=== PATIENT | female | born 1980 | race American Indian/Alaskan Native ===

== ENCOUNTER 2021-05-03 06:16 | Emergency (ER) | payer BC ==
--- NOTE | 2021-05-03 06:36 | Emergency Department Report ---
- General Chief Complaint: Upper Respiratory Infection Stated Complaint: OTHER Time Seen by Provider: 05/03/21 06:32 Source: patient Mode of arrival: Ambulatory Limitations: No Limitations - History of Present Illness Initial Comments: 40-year-old female, history of bronchitis, presents to ED with cough and wheezing since last night. Patient denies any fever, loss of smell or taste. Patient received her COVID-19 vaccine. Patient reports using albuterol nebulizer prior to arrival. MD Complaint: cough -: Last night Severity: mild Consistency: constant Improves With: other (Nebulizer) Worsens With: nothing Associated Symptoms: cough. denies: fever, chills, sore throat, nausea, vomiting, diarrhea Treatments Prior to Arrival: other (Albuterol nebulizer) - Related Data Previous Rx's Medication Instructions Recorded Last Taken Type Ibuprofen [Motrin] 800 mg PO Q8H PRN #21 tablet 12/29/14 Unknown Rx Mometasone Furoate [Nasonex] 1 spray NS DAILY #1 spray.pump 05/28/20 Unknown Rx guaiFENesin/CODEINE [Robitussin AC] 5 ml PO Q6H PRN #120 ml 05/28/20 Unknown Rx predniSONE [Deltasone] 50 mg PO QDAY #5 tab 05/28/20 Unknown Rx Albuterol Sulfate [Proventil Hfa] 2 puff IH Q4HR PRN #1 hfa.aer.ad 05/03/21 Unknown Rx Azithromycin 500 mg PO QDAY #3 tablet 05/03/21 Unknown Rx Benzonatate [Tessalon Perles] 100 mg PO Q8HR PRN #20 capsule 05/03/21 Unknown Rx predniSONE [Deltasone] 50 mg PO QDAY #5 tab 05/03/21 Unknown Rx Allergies Allergy/AdvReac Type Severity Reaction Status Date / Time No Known Allergies Allergy Unverified 12/29/14 00:23 ED Review of Systems ROS: Stated complaint: OTHER Other details as noted in HPI Comment: All other systems reviewed and negative Constitutional: denies: chills, fever ENT: other (Denies loss of smell or taste) Respiratory: cough, wheezing ED Past Medical Hx - Past Medical History Previous Medical History?: Yes Additional medical history: bronchitis - Surgical History Past Surgical History?: No - Social History Smoking Status: Never Smoker Substance Use Type: None - Medications Home Medications: Home Medications Medication Instructions Recorded Confirmed Last Taken Type Ibuprofen [Motrin] 800 mg PO Q8H PRN #21 tablet 12/29/14 Unknown Rx Mometasone Furoate [Nasonex] 1 spray NS DAILY #1 spray.pump 05/28/20 Unknown Rx guaiFENesin/CODEINE [Robitussin AC] 5 ml PO Q6H PRN #120 ml 05/28/20 Unknown Rx predniSONE [Deltasone] 50 mg PO QDAY #5 tab 05/28/20 Unknown Rx Albuterol Sulfate [Proventil Hfa] 2 puff IH Q4HR PRN #1 hfa.aer.ad 05/03/21 Unknown Rx Azithromycin 500 mg PO QDAY #3 tablet 05/03/21 Unknown Rx Benzonatate [Tessalon Perles] 100 mg PO Q8HR PRN #20 capsule 05/03/21 Unknown Rx predniSONE [Deltasone] 50 mg PO QDAY #5 tab 05/03/21 Unknown Rx ED Physical Exam - General Limitations: No Limitations General appearance: alert, in no apparent distress - Head Head exam: Present: atraumatic, normocephalic - Eye Eye exam: Present: normal appearance, EOMI - ENT ENT exam: Present: mucous membranes moist - Neck Neck exam: Present: normal inspection - Respiratory Respiratory exam: Present: normal lung sounds bilaterally. Absent: respiratory distress - Cardiovascular Cardiovascular Exam: Present: normal rhythm, tachycardia - GI/Abdominal GI/Abdominal exam: Absent: distended - Extremities Exam Extremities exam: Present: normal inspection - Neurological Exam Neurological exam: Present: alert, oriented X3 - Psychiatric Psychiatric exam: Present: normal affect, normal mood - Skin Skin exam: Present: warm, dry, intact, normal color ED Course Vital Signs 05/03/21 05/03/21 05/03/21 06:24 06:25 06:37 Temperature 98 F 98.3 F Pulse Rate 116 H 113 H Respiratory 16 19 Rate Blood Pressure 100/74 Blood Pressure 107/71 [Right] O2 Sat by Pulse 99 99 Oximetry 05/03/21 06:38 Temperature Pulse Rate Respiratory Rate Blood Pressure Blood Pressure [Right] O2 Sat by Pulse 100 Oximetry ED Medical Decision Making - Medical Decision Making Vital signs stable. Tachycardia likely secondary to albuterol treatment. Lungs are clear at this time. O2 sats are normal. Patient in no respiratory distress. Patient advised to obtain outpatient COVID-19 testing. - Differential Diagnosis Bronchitis, viral illness Critical care attestation.: If time is entered above; I have spent that time in minutes in the direct care of this critically ill patient, excluding procedure time. ED Disposition Clinical Impression: Acute bronchitis Disposition: 01 HOME / SELF CARE / HOMELESS Is pt being admited?: No Condition: Stable Instructions: Acute Bronchitis, Adult, [id number], Acute Bronchitis (ED) Additional Instructions: It is advised that you obtain outpatient COVID-19 testing. Prescriptions: Azithromycin 500 mg PO QDAY #3 tablet predniSONE [Deltasone] 50 mg PO QDAY #5 tab Albuterol Sulfate [Proventil Hfa] 2 puff IH Q4HR PRN #1 hfa.aer.ad PRN Reason: Wheezing Benzonatate [Tessalon Perles] 100 mg PO Q8HR PRN #20 capsule PRN Reason: Cough Referrals: PEPE CARRILLO MD [Primary Care Provider] - 3-5 Days Time of Disposition: 06:36
[2021-05-03 06:38] VITALS: BP 107/71
== END 2021-05-03 06:42 | disposition home or self-care (01) ==
LOC: ED 06:16
DX: J20.9 Acute bronchitis, unspecified (principal); Z98.890 Other specified postprocedural states; Z79.899 Other long term (current) drug therapy
CPT/HCPCS: 99282

== ENCOUNTER 2022-05-07 00:58 | Emergency (ER) | payer BC ==
[2022-05-07] MEDS ORDERED: KETOROLAC 60 MG/2 ML INJ IM STA (01:06)
--- NOTE | 2022-05-07 01:23 | XRay Report ---
Left shoulder 3 views INDICATION: Left shoulder pain for 3 days IMPRESSION: The left shoulder is intact. Minimal AC joint degenerative change. Signer Name: Rommel Green MD Signed: 05/07/2022 1:18 AM Workstation Name: [employer]
[2022-05-07] MEDS ORDERED: oxyCODONE /ACETAMINOPHEN 5-325MG TAB PO ONE (03:18)
[2022-05-07 03:22] VITALS: BP 139/87
--- NOTE | 2022-05-07 03:22 | Emergency Department Report ---
ED Upper Extremity Inj HPI - General Stated Complaint: LEFT SHOULDER PAIN Time Seen by Provider: 05/07/22 01:05 - History of Present Illness MD Complaint: Injury to:: left, shoulder -: Gradual Other Extremity Injury: Shoulder: Left Other Injuries: none Place: home Improves With: none Worsens With: none Context: other (Sleeps on the left side shoulder quite often also may have injured the arm while dancing) - Related Data Previous Rx's Medication Instructions Recorded Last Taken Type Ibuprofen [Motrin] 800 mg PO Q8H PRN #21 tablet 12/29/14 Unknown Rx Mometasone Furoate [Nasonex] 1 spray NS DAILY #1 spray.pump 05/28/20 Unknown Rx guaiFENesin/CODEINE [Robitussin AC] 5 ml PO Q6H PRN #120 ml 05/28/20 Unknown Rx predniSONE [Deltasone] 50 mg PO QDAY #5 tab 05/28/20 Unknown Rx Albuterol Sulfate [Proventil Hfa] 2 puff IH Q4HR PRN #1 hfa.aer.ad 05/03/21 Unknown Rx Azithromycin 500 mg PO QDAY #3 tablet 05/03/21 Unknown Rx Benzonatate [Tessalon Perles] 100 mg PO Q8HR PRN #20 capsule 05/03/21 Unknown Rx predniSONE [Deltasone] 50 mg PO QDAY #5 tab 05/03/21 Unknown Rx Ketorolac [Toradol] 10 mg PO Q6H PRN #20 05/07/22 Unknown Rx Allergies Allergy/AdvReac Type Severity Reaction Status Date / Time No Known Allergies Allergy Unverified 12/29/14 00:23 ED Review of Systems ROS: Stated complaint: LEFT SHOULDER PAIN Other details as noted in HPI Comment: All other systems reviewed and negative ED Past Medical Hx - Past Medical History Additional medical history: bronchitis - Social History Smoking Status: Never Smoker Substance Use Type: None - Medications Home Medications: Home Medications Medication Instructions Recorded Confirmed Last Taken Type Ibuprofen [Motrin] 800 mg PO Q8H PRN #21 tablet 12/29/14 Unknown Rx Mometasone Furoate [Nasonex] 1 spray NS DAILY #1 spray.pump 05/28/20 Unknown Rx guaiFENesin/CODEINE [Robitussin AC] 5 ml PO Q6H PRN #120 ml 09/22/20 Unknown Rx predniSONE [Deltasone] 50 mg PO QDAY #5 tab 05/28/20 Unknown Rx Albuterol Sulfate [Proventil Hfa] 2 puff IH Q4HR PRN #1 hfa.aer.ad 05/03/21 Unknown Rx Azithromycin 500 mg PO QDAY #3 tablet 05/03/21 Unknown Rx Benzonatate [Tessalon Perles] 100 mg PO Q8HR PRN #20 capsule 05/03/21 Unknown Rx predniSONE [Deltasone] 50 mg PO QDAY #5 tab 05/03/21 Unknown Rx Ketorolac [Toradol] 10 mg PO Q6H PRN #20 05/07/22 Unknown Rx Critical care attestation.: If time is entered above; I have spent that time in minutes in the direct care of this critically ill patient, excluding procedure time. ED Disposition Disposition: 01 HOME / SELF CARE / HOMELESS Condition: Stable Instructions: Shoulder Pain, How to Use Cold Therapy, [id number], Shoulder Impingement Syndrome Rehab[facility], How to Use Cold Therapy, Secondary Shoulder Impingement Syndrome [facility] Prescriptions: Ketorolac [Toradol] 10 mg PO Q6H PRN #20 PRN Reason: Pain Referrals: SARAH HAYES MD [Primary Care Provider] - 3-5 Days
== END 2022-05-07 03:23 | disposition home or self-care (01) ==
LOC: ED 00:58
DX: M25.512 Pain in left shoulder (principal)
CPT/HCPCS: 73030; 96372; 99283; J1885

== ENCOUNTER 2022-05-09 22:57 | Emergency (ER) | payer BC ==
[2022-05-09 23:00] VITALS: BP 144/77
--- NOTE | 2022-05-09 23:20 | Emergency Department Report ---
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 Patient was seen and evaluated here and had an unremarkable left shoulder x-ray. She is prescribed Toradol but states it is not effectively controlling her pain and she is unable to sleep secondary to pain. She also endorses paresthesias to her hand without weakness. she is requesting stronger medication. She was provided follow-up with primary care doctor Dr. Byrne. - Related Data Previous Rx's Medication Instructions Recorded Last Taken Type Ibuprofen [Motrin] 800 mg PO Q8H PRN #21 tablet 12/29/14 Unknown Rx Mometasone Furoate [Nasonex] 1 spray NS DAILY #1 spray.pump 05/28/20 Unknown Rx guaiFENesin/CODEINE [Robitussin AC] 5 ml PO Q6H PRN #120 ml 05/28/20 Unknown Rx predniSONE [Deltasone] 50 mg PO QDAY #5 tab 05/28/20 Unknown Rx Albuterol Sulfate [Proventil Hfa] 2 puff IH Q4HR PRN #1 hfa.aer.ad 05/03/21 Unknown Rx Azithromycin 500 mg PO QDAY #3 tablet 05/03/21 Unknown Rx Benzonatate [Tessalon Perles] 100 mg PO Q8HR PRN #20 capsule 05/03/21 Unknown Rx predniSONE [Deltasone] 50 mg PO QDAY #5 tab 05/03/21 Unknown Rx Ketorolac [Toradol] 10 mg PO Q6H PRN #20 05/07/22 Unknown Rx Cyclobenzaprine [Flexeril] 10 mg PO TID PRN #20 tab 05/09/22 Unknown Rx HYDROcodone/APAP 5-325 [[place] 1 each PO Q6HR PRN #14 tablet 05/09/22 Unknown Rx 5/325] Allergies Allergy/AdvReac Type Severity Reaction Status Date / Time No Known Allergies Allergy Unverified 12/29/14 00:23 ED Review of Systems ROS: Stated complaint: BACK /SHOULDER PAIN Other details as noted in HPI Comment: All other systems reviewed and negative ED Past Medical Hx - Past Medical History Additional medical history: bronchitis - Social History Smoking Status: Never Smoker - Medications Home Medications: Home Medications Medication Instructions Recorded Confirmed Last Taken Type Ibuprofen [Motrin] 800 mg PO Q8H PRN #21 tablet 12/29/14 Unknown Rx Mometasone Furoate [Nasonex] 1 spray NS DAILY #1 spray.pump 05/28/20 Unknown Rx guaiFENesin/CODEINE [Robitussin AC] 5 ml PO Q6H PRN #120 ml 05/28/20 Unknown Rx predniSONE [Deltasone] 50 mg PO QDAY #5 tab 05/28/20 Unknown Rx Albuterol Sulfate [Proventil Hfa] 2 puff IH Q4HR PRN #1 hfa.aer.ad 05/03/21 Unknown Rx Azithromycin 500 mg PO QDAY #3 tablet 05/03/21 Unknown Rx Benzonatate [Tessalon Perles] 100 mg PO Q8HR PRN #20 capsule 05/03/21 Unknown Rx predniSONE [Deltasone] 50 mg PO QDAY #5 tab 05/03/21 Unknown Rx Ketorolac [Toradol] 10 mg PO Q6H PRN #20 05/07/22 Unknown Rx Cyclobenzaprine [Flexeril] 10 mg PO TID PRN #20 tab 05/09/22 Unknown Rx HYDROcodone/APAP 5-325 [[place] 1 each PO Q6HR PRN #14 tablet 05/09/22 Unknown Rx 5/325] ED Physical Exam - General Limitations: No Limitations - Other Other exam information: General: No acute distress Head: Atraumatic Eyes: normal appearance ENT: Moist mucous membranes Neck: Normal appearance, no midline tenderness Chest: Clear to auscultation bilaterally CV: Regular rate and rhythm Abdomen: Soft, normal bowel sounds, nontender, nondistended, no rebound or guarding Back: Normal inspection Extremity: Normal inspection, tenderness along left trapezius muscle and left bicep muscle. Mild anterior joint tenderness. Minimal pain with shoulder extension and flexion. Pain more significant but left shoulder abduction with limited movement past 90 degrees. No significant pain with internal or external rotation. 2+ radial pulse. Distal sensation intact. No edema or warmth. Neuro: Alert O x 3, no facial asymmetry, speech clear, no gross motor sensory deficit Psych: Appropriate behavior Skin: No rash ED Course Vital Signs 05/09/22 22:59 Temperature 98.1 F Pulse Rate 81 Respiratory 18 Rate Blood Pressure 144/77 O2 Sat by Pulse 100 Oximetry ED Medical Decision Making - Medical Decision Making 41-year-old female presents to the hospital left shoulder, bicep, trapezius pain after lifting a heavy patient. X-ray 2 days ago was unremarkable. I suspect musculoskeletal injury/strain with possibility of nerve impingement or rotator cuff injury. Patient would need further outpatient follow-up and orthopedic evaluation. She will be prescribed Flexeril to take with Toradol for muscle spasms and [place] as needed severe pain Critical Care Time: No Critical care attestation.: If time is entered above; I have spent that time in minutes in the direct care of this critically ill patient, excluding procedure time. ED Disposition Clinical Impression: Left shoulder pain, Trapezius strain Disposition: HOME / SELF CARE / HOMELESS Is pt being admited?: No Does the pt Need Aspirin: No Condition: Stable Instructions: Shoulder Pain Additional Instructions: Take the medication as prescribed. Follow-up with your doctor or doctor/clinic provided. Return if symptoms worsen as indicated by your discharge instructions. Prescriptions: Cyclobenzaprine [Flexeril] 10 mg PO TID PRN #20 tab PRN Reason: Muscle Spasm HYDROcodone/APAP 5-325 [[place] 5/325] 1 each PO Q6HR PRN #14 tablet PRN Reason: Pain Referrals: [facility] [Provider Group] - 3-5 Days (Orthopedic doctor) MONSERRAT COLEMAN MD [Staff Physician] - 3-5 Days (Orthopedic doctor) Time of Disposition: 23:19
== END 2022-05-09 23:35 | disposition home or self-care (01) ==
LOC: ED 22:57
DX: S46.812A Strain of other muscles, fascia and tendons at shoulder and upper arm level, left arm, initial encounter (principal); Z79.899 Other long term (current) drug therapy; X50.0XXA Overexertion from strenuous movement or load, initial encounter; Y93.89 Activity, other specified; Y92.89 Other specified places as the place of occurrence of the external cause; Y99.8 Other external cause status
CPT/HCPCS: 99282